=== PATIENT | female | born 1985 | race Hispanic/Latino ===

== ENCOUNTER 2019-03-17 08:13 | Emergency (ER) | payer OTHER ==
[~2019-03-17 08:13] MED LIST: EPINEPHrine 1:10,000 1 MG/10 ML SYRINGE ONE
--- NOTE | 2019-03-17 08:19 | Emergency Department Report ---
ED CPR HPI - General Chief Complaint: Cardiac Arrest/CPR Stated Complaint: CARDIAC ARREST Time Seen by Provider: 03/17/19 08:18 Source: EMS (verbal report received from [email or web address].[email or web address] records not available at this time for chart dictation or review.), RN notes reviewed Mode of arrival: Stretcher Limitations: Altered Mental Status, Physical Limitation - History of Present Illness Initial Comments: The patient is a 33-year-old female who is not known to this provider previously, brought to the hospital by emergency medical services in cardiac arrest. Last known well time as per EMS verbal report is 3:00 in the morning. Patient found down in a hotel room by a boyfriend. As per EMS, patient pulseless in the field, without spontaneous respirations. Filemon airway placed. CPR initiated. Standard ACLS interventions performed. Approximate transportation time with CPR in EMS care prior to ER arrival is 30 minutes by EMS verbal report. Upon arrival to the emergency room, pupils are fixed and dilated, patient has evidence of lividity, and cyanosis, with emesis and dried vomit around her airway and nose. Patient continues to receive high quality CPR, and standard ACLS interventions. Doppler interrogation of femoral arteries shows no pulse. Cardiac ultrasound shows standstill, with no coordinated cardiac activity or ventricular activity. Resuscitation efforts are terminated secondary to medical futility. Chart has contacted the patient's mother, and informed her of the patient's demise. Nursing team also to inform boyfriend of patient's demise. MD Complaint: found unresponsive -: hour(s) Initial Findings in the Field: unresponsive, PEA Treatments Prior to Arrival: intubation, BMV, other airway device, chest compressions, epinephrine mgs # ED Review of Systems ROS: Stated complaint: CARDIAC ARREST Other details as noted in HPI Comment: Unobtainable due to pts medical conditions ED Physical Exam - General Limitations: Altered Mental Status, Physical Limitation General appearance: obtunded - Head Head exam: Present: atraumatic, normocephalic - Eye Eye exam: Present: normal appearance, other (pupils are dilated and do not react to light) - ENT ENT exam: Present: mucous membranes moist, other (supraglottic airway in place, dried emesis noted around the mouth) - Neck Neck exam: Present: normal inspection - Respiratory Respiratory exam: Present: other (no breath sounds and was [id number]-glhi ventilation is applied) - Cardiovascular Cardiovascular Exam: Present: other (the patient is pulseless). Absent: regular rate, normal rhythm, systolic murmur, diastolic murmur, rubs, gallop - GI/Abdominal GI/Abdominal exam: Present: soft - Extremities Exam Extremities exam: Present: normal inspection, other (no pulses are appreciated. Intraosseous line noted in the left lower extremity) - Back Exam Back exam: Present: normal inspection - Neurological Exam Neurological exam: Present: alert, altered (patient is nonverbal, has a GCS of 3) - Skin Skin exam: Present: dry ED Medical Decision Making - Medical Decision Making Differential diagnosis, including but not limited to: Narcotic overdose, cardiac arrest Assessment and plan: 33-year-old female presenting in cardiac arrest, unable to obtain return of spontaneous circulation, prolonged downtime, resuscitation efforts are terminated. Critical care attestation.: If time is entered above; I have spent that time in minutes in the direct care of this critically ill patient, excluding procedure time. ED Disposition Clinical Impression: Cardiac arrest, History of opioid abuse Disposition: DC-20 Is pt being admited?: No Does the pt Need Aspirin: No Condition: Undetermined
== END 2019-03-17 12:06 ==
LOC: ED 08:13
DX: I46.9 Cardiac arrest, cause unspecified (principal); F11.11 Opioid abuse, in remission
CPT/HCPCS: 92950; 99285; J0171